=== PATIENT | male | born 1980 | race Two or more races ===

== ENCOUNTER 2017-02-16 12:37 | Inpatient (IN) | payer BC ==
[2017-02-16] MEDS ORDERED: Ondansetron 4 MG/2 ML SDV IVPUSH ONE (13:22)
[2017-02-16] MEDS ORDERED: Folic Acid 1 MG Tab PO ONE (13:24)
[2017-02-16] MEDS ORDERED: Sodium Chloride 0.9% 1,000 ML IV ONE (13:24)
[2017-02-16] MEDS ORDERED: Thiamine 100 MG Tab PO ONE (13:24)
--- NOTE | 2017-02-16 13:27 | EDM.PDOCBH ---
ED HPI GENERAL MEDICAL PROBLEM - General Chief Complaint: Drug or Alcohol Abuse Stated Complaint: ALCOHOL DETOX SENT FROM [facility] Time Seen by Provider: 02/16/17 13:09 Source of Information: Reports: Patient History Limitations: Reports: No Limitations - History of Present Illness INITIAL COMMENTS - FREE TEXT/NARRATIVE: Patient is a 36-year-old male with a long history of alcohol use presents to the ED wishing to go through detox. Patient went to [facility] today for detox and was sent here for evaluation and treatment for increased anxiety and generalized discomfort. Patient states he last drank approximately 45 minutes ago. This consisted of 2 shots of vodka and 24 oz bud light. Patient has been drinking 1 pint of vodka every day normally but states weekends he drinks approximately 2-3 liters of vodka a weekend. This has been going on for the past 2-3 months. Has been drinking alcohol every day since 2010 since his divorce. Has attempted to detox by himself one time last 3 days. He was unsuccessful. He's had no seizures. Denies any hallucinations, homicidal ideations, or suicidal thoughts. He does feel increased anxiety with mild nausea and has had episodes of palpitations. Denies any recreational drug use. Denies any prior inpatient treatment. Past medical history alcoholism, depression, anxiety, split personality disorder , and bipolar. Current medications none stated. Patient smokes approximately 2 packs per day. Alcohol use as discussed above. Denies recreational drugs. No primary care provider. Generalized Pain Score (Numeric/FACES): 7 - Related Data Allergies Allergy/AdvReac Type Severity Reaction Status Date / Time No Known Allergies Allergy Verified 02/16/17 12:54 Home Meds: Home Meds FLUoxetine [PROzac] 20 mg PO DAILY #30 cap 02/19/17 [Rx] Folic Acid 1 mg PO DAILY #30 tablet 02/19/17 [Rx] Nicotine [Habitrol] 21 mg TRDERM DAILY #30 patch 02/19/17 [Rx] QUEtiapine [SEROquel] 100 mg PO BEDTIME #30 tablet 02/19/17 [Rx] Thiamine [Vitamin B-1] 100 mg PO BEDTIME #30 tablet 02/19/17 [Rx] Topiramate [Topamax] 25 mg PO BID #60 tablet 02/19/17 [Rx] Past Medical History Psychiatric History: Reports: Anxiety, Depression Hematologic History: Reports: Anemia, Other (See Below) Other Hematologic History: protein deficiency in his blood? - Past Surgical History GI Surgical History: Reports: Other (See Below) Other GI Surgeries/Procedures: gastric sleeve surgery Social & Family History - Tobacco Use Smoking Status *Q: Current Every Day Smoker Years of Tobacco use: 24 Packs/Tins Daily: 2 - Recreational Drug Use Recreational Drug Use: No ED ROS GENERAL - Review of Systems Review Of Systems: See Below Constitutional: Reports: Malaise, Weakness, Fatigue, Decreased Appetite HEENT: Reports: No Symptoms Respiratory: Reports: No Symptoms Cardiovascular: Reports: No Symptoms GI/Abdominal: Reports: Nausea. Denies: Abdominal Pain, Black Stool, Bloody Stool, Hematemesis, Melena, Vomiting : Reports: No Symptoms Musculoskeletal: Reports: Muscle Pain (Generalized) Skin: Reports: No Symptoms Neurological: Denies: Confusion, Dizziness, Headache, Numbness, Seizure, Tingling Psychiatric: Reports: Anxiety, Cravings ED EXAM, BEHAVIORAL HEALTH - Physical Exam Exam: See Below Exam Limited By: No Limitations General Appearance: Alert, WD/WN, Anxious, Moderate Distress Eye Exam: Bilateral Eye: EOMI, Nystagmus (Horizontal present), PERRL Ears: Hearing Grossly Normal Nose: Normal Inspection Throat/Mouth: Normal Voice, No Airway Compromise, Other (Oral mucosa is mildly dry) Neck: Normal Inspection, Supple, Non-Tender, Full Range of Motion Respiratory/Chest: No Respiratory Distress, Lungs Clear, Normal Breath Sounds, No Accessory Muscle Use, Chest Non-Tender Cardiovascular: Normal Peripheral Pulses, No Murmur, Tachycardia GI/Abdominal: Normal Bowel Sounds, Soft, Non-Tender, No Organomegaly, No Distention Extremities: Normal Inspection, Non-Tender, No Pedal Edema, Normal Capillary Refill Neurological: Alert, CN II-XII Intact, Normal Cognition, No Motor/Sensory Deficits, Oriented x 3 Psychiatric: Alert, Normal Cognition, Oriented, Tearful, Other (Patient is very anxious). No: Flight of Ideas, Homicidal Thoughts, Suicidal Plan, Suicidal Thoughts, Auditory Hallucinations, Visual Hallucinations Skin Exam: Warm, Dry, Intact, Normal color COURSE, BEHAVIORAL HEALTH COMP - Course Vital Signs: Last Vital Signs Temp 97.6 F 02/19/17 12:00 Pulse 69 02/19/17 12:00 Resp 14 02/19/17 12:00 BP 97/69 02/19/17 12:00 Pulse Ox 98 02/19/17 12:00 Orders, Labs, Meds: Laboratory Tests 02/16/17 02/16/17 02/16/17 Range/Units 13:00 13:00 13:00 WBC 9.71 H (4.23-9.07) K/mm3 RBC 5.10 (4.63-6.08) M/mm3 Hgb 17.1 (13.7-17.5) gm/L Hct 48.4 (40.1-51.0) % MCV 94.9 H (79.0-92.2) fl MCH 33.5 H (25.7-32.2) pg MCHC 35.3 (32.2-35.5) g/dl RDW Std Deviation 46.4 H (35.1-43.9) fL Plt Count 191 (163-337) K/mm3 MPV 9.6 (9.4-12.3) fl Neut % (Auto) 71.6 H (34.0-67.9) % Lymph % (Auto) 18.1 L (21.8-53.1) % [place] % (Auto) 9.0 (5.3-12.2) % Eos % (Auto) 0.5 L (0.8-7.0) Baso % (Auto) 0.5 (0.1-1.2) % Neut # (Auto) 6.95 H (1.78-5.38) K/mm3 Lymph # (Auto) 1.76 (1.32-3.57) K/mm3 [place] # (Auto) 0.87 H (0.30-0.82) K/mm3 Eos # (Auto) 0.05 (0.04-0.54) K/mm3 Baso # (Auto) 0.05 (0.01-0.08) K/mm3 PT 9.9 (8.0-13.0) SECONDS INR 0.91 Sodium 139 (136-145) mEq/L Potassium 4.0 (3.5-5.1) mEq/L Chloride 100 (98-107) mEq/L Carbon Dioxide 28 (21-32) mEq/L Anion Gap 15.0 (5-15) BUN 8 (7-18) mg/dL Creatinine 0.8 (0.7-1.3) mg/dL Est Cr Clr Drug Dosing 141.49 mL/min Estimated GFR (MDRD) > 60 (>60) mL/min BUN/Creatinine Ratio 10.0 L (14-18) Glucose 114 H (74-106) mg/dL Calcium 9.1 (8.5-10.1) mg/dL Magnesium 1.7 L (1.8-2.4) mg/dl Total Bilirubin 0.5 (0.2-1.0) mg/dL AST 22 (15-37) U/L ALT 18 (16-63) U/L Alkaline Phosphatase 77 (46-116) U/L Total Protein 8.2 (6.4-8.2) g/dl Albumin 4.0 (3.4-5.0) g/dl Globulin 4.2 gm/dL Albumin/Globulin Ratio 1.0 (1-2) Lipase 478 H (73-393) U/L TSH 3rd Generation 1.126 (0.358-3.74) uIU/mL Urine Color (Yellow) Urine Appearance (Clear) Urine pH (5.0-8.0) Ur Specific [place] (1.005-1.030) Urine Protein (Negative) Urine Glucose (UA) (Negative) Urine Ketones (Negative) Urine Occult Blood (Negative) Urine Nitrite (Negative) Urine Bilirubin (Negative) Urine Urobilinogen (0.2-1.0) Ur Leukocyte Esterase (Negative) Urine RBC (0-5) /hpf Urine WBC (0-5) /hpf Ur Epithelial Cells (0-5) /hpf Urine Bacteria (FEW) /hpf Urine Mucus (FEW) /hpf Urine Opiates Screen (NEGATIVE) Ur Buprenorphine Scrn (NEGATIVE) Ur Oxycodone Screen (NEGATIVE) Urine Methadone Screen (NEGATIVE) Ur Propoxyphene Screen (NEGATIVE) Ur Barbiturates Screen (NEGATIVE) Ur Tricyclics Screen (NEGATIVE) Ur Phencyclidine Scrn (NEGATIVE) Ur Amphetamine Screen (NEGATIVE) U Methamphetamines Scrn (NEGATIVE) U Benzodiazepines Scrn (NEGATIVE) U Cocaine Metab Screen (NEGATIVE) U Marijuana (THC) Screen (NEGATIVE) Ethyl Alcohol 0.21 (0.00) gm% 02/16/17 02/16/17 Range/Units 13:40 13:40 WBC (4.23-9.07) K/mm3 RBC (4.63-6.08) M/mm3 Hgb (13.7-17.5) gm/L Hct (40.1-51.0) % MCV (79.0-92.2) fl MCH (25.7-32.2) pg MCHC (32.2-35.5) g/dl RDW Std Deviation (35.1-43.9) fL Plt Count (163-337) K/mm3 MPV (9.4-12.3) fl Neut % (Auto) (34.0-67.9) % Lymph % (Auto) (21.8-53.1) % Yancey % (Auto) (5.3-12.2) % Eos % (Auto) (0.8-7.0) Baso % (Auto) (0.1-1.2) % Neut # (Auto) (1.78-5.38) K/mm3 Lymph # (Auto) (1.32-3.57) K/mm3 [place] # (Auto) (0.30-0.82) K/mm3 Eos # (Auto) (0.04-0.54) K/mm3 Baso # (Auto) (0.01-0.08) K/mm3 PT (8.0-13.0) SECONDS INR Sodium (136-145) mEq/L Potassium (3.5-5.1) mEq/L Chloride (98-107) mEq/L Carbon Dioxide (21-32) mEq/L Anion Gap (5-15) BUN (7-18) mg/dL Creatinine (0.7-1.3) mg/dL Est Cr Clr Drug Dosing mL/min Estimated GFR (MDRD) (>60) mL/min BUN/Creatinine Ratio (14-18) Glucose (74-106) mg/dL Calcium (8.5-10.1) mg/dL Magnesium (1.8-2.4) mg/dl Total Bilirubin (0.2-1.0) mg/dL AST (15-37) U/L ALT (16-63) U/L Alkaline Phosphatase (46-116) U/L Total Protein (6.4-8.2) g/dl Albumin (3.4-5.0) g/dl Globulin gm/dL Albumin/Globulin Ratio (1-2) Lipase (73-393) U/L TSH 3rd Generation (0.358-3.74) uIU/mL Urine Color Yellow (Yellow) Urine Appearance Clear (Clear) Urine pH 6.5 (5.0-8.0) Ur Specific [place] 1.010 (1.005-1.030) Urine Protein Negative (Negative) Urine Glucose (UA) Negative (Negative) Urine Ketones Negative (Negative) Urine Occult Blood Negative (Negative) Urine Nitrite Negative (Negative) Urine Bilirubin Negative (Negative) Urine Urobilinogen 0.2 (0.2-1.0) Ur Leukocyte Esterase Negative (Negative) Urine RBC 0-5 (0-5) /hpf Urine WBC Not seen (0-5) /hpf Ur Epithelial Cells 0-5 (0-5) /hpf Urine Bacteria Rare (FEW) /hpf Urine Mucus Not seen (FEW) /hpf Urine Opiates Screen Negative (NEGATIVE) Ur Buprenorphine Scrn Negative (NEGATIVE) Ur Oxycodone Screen Negative (NEGATIVE) Urine Methadone Screen Negative (NEGATIVE) Ur Propoxyphene Screen Negative (NEGATIVE) Ur Barbiturates Screen Negative (NEGATIVE) Ur Tricyclics Screen Negative (NEGATIVE) Ur Phencyclidine Scrn Negative (NEGATIVE) Ur Amphetamine Screen Negative (NEGATIVE) U Methamphetamines Scrn Negative (NEGATIVE) U Benzodiazepines Scrn Negative (NEGATIVE) U Cocaine Metab Screen Negative (NEGATIVE) U Marijuana (THC) Screen Negative (NEGATIVE) Ethyl Alcohol (0.00) gm% Medications Discontinued Medications Generic Name Dose Route Start Last Admin Trade Name Freq PRN Reason Stop Dose Admin Al Hydroxide/Mg Hydroxide 30 ml 02/16/17 19:50 Mag-Al Plus PO Q4H PRN Heartburn Chlordiazepoxide HCl 25 mg 02/16/17 21:00 02/18/17 13:45 Librium PO Not Given QID SEAN Chlordiazepoxide HCl 50 mg 02/18/17 13:21 02/19/17 15:02 Librium PO 50 mg TID SEAN Administration Fluoxetine HCl 20 mg 02/17/17 09:00 02/19/17 08:32 Prozac PO 20 mg DAILY SEAN Administration Folic Acid 1 mg 02/16/17 13:24 02/16/17 15:01 Folic Acid PO 02/16/17 13:25 1 mg ONETIME ONE Administration Folic Acid 1 mg 02/17/17 09:00 02/19/17 08:31 Folic Acid PO 1 mg DAILY SEAN Administration Haloperidol Lactate 1 mg 02/16/17 20:04 02/17/17 03:13 Haldol IVPUSH 1 mg Q8H PRN Administration restlessness Haloperidol Lactate 1 mg 02/18/17 13:23 Haldol IVPUSH Q8H PRN Restlessness Sodium Chloride 1,000 mls @ 999 mls/hr 02/16/17 13:24 02/16/17 13:47 Normal Saline IV 02/16/17 14:24 999 mls/hr ONETIME ONE Administration Magnesium Sulfate 2 gm/ Premix 50 mls @ 25 mls/hr 02/16/17 14:34 02/16/17 14: 50 IV 02/16/17 16:33 25 mls/hr ONETIME ONE Administration Potassium Chloride/Sodium Chloride 1,000 mls @ 125 mls/hr 02/16/17 20:45 04:39 Normal Saline With 20 Meq Kcl IV 125 mls/hr ASDIRECTED SEAN Administration Magnesium Sulfate 2 gm/ Premix 50 mls @ 25 mls/hr 02/18/17 12:16 02/18/17 13: 43 IV 02/18/17 14:15 25 mls/hr ONETIME ONE Administration Lorazepam 3 mg 02/16/17 16:19 02/16/17 16:24 Ativan IVPUSH 02/16/17 16:20 3 mg ONETIME ONE Administration Lorazepam 0 mg 02/16/17 21:28 02/18/17 09:55 Ativan IVPUSH 1 mg ASDIRECTED PRN Administration Withdrawal Symptoms Protocol Lorazepam 3 mg 02/17/17 15:33 02/17/17 16:47 Ativan IVPUSH 02/17/17 15:34 3 mg ONETIME ONE Administration Lorazepam 3 mg 02/18/17 13:22 02/19/17 13:22 Ativan IVPUSH 3 mg Q6H PRN Administration Anxiety Metoprolol Tartrate 25 mg 02/16/17 21:00 02/19/17 09:24 Lopressor PO Not Given Q12HR SEAN Metoprolol Tartrate 5 mg 02/16/17 20:32 Lopressor IVPUSH Q6H PRN heart rate Miscellaneous Information 0 ea 02/18/17 09:00 02/19/17 09:00 Remove Patch TRDERM 1 ea DAILY SEAN Administration Nicotine 21 mg 02/17/17 13:00 02/19/17 08:33 Habitrol TRDERM 21 mg DAILY SEAN Administration Nicotine 14 mg 02/17/17 13:00 02/17/17 13:42 Habitrol TRDERM Not Given DAILY SEAN Ondansetron HCl 4 mg 02/16/17 13:22 02/16/17 13:48 Zofran IVPUSH 02/16/17 13:23 4 mg ONETIME ONE Administration Pantoprazole Sodium 40 mg 02/16/17 20:30 02/18/17 09:38 Protonix Iv IVPUSH 40 mg Q12H SEAN Administration Pantoprazole Sodium 40 mg 02/19/17 07:00 02/19/17 06:50 Protonix PO 40 mg DAILY@0700 SEAN Administration Quetiapine Fumarate 25 mg 02/16/17 21:00 02/16/17 20:37 Seroquel PO 25 mg BEDTIME SEAN Administration Quetiapine Fumarate 100 mg 02/17/17 21:00 02/18/17 20:23 Seroquel PO 100 mg BEDTIME SEAN Administration Sodium Chloride 10 ml 02/16/17 13:22 02/18/17 20:26 Saline Flush FLUSH 10 ml ASDIRECTED PRN Administration Keep Vein Open Thiamine HCl 100 mg 02/16/17 13:24 02/16/17 15:01 Vitamin B-1 PO 02/16/17 13:25 100 mg ONETIME ONE Administration Thiamine HCl 100 mg 02/17/17 21:00 02/18/17 20:22 Vitamin B-1 PO 100 mg BEDTIME SEAN Administration Topiramate 25 mg 02/17/17 09:00 02/19/17 08:32 Topamax PO 25 mg BID SEAN Administration Re-Assessment/Re-Exam: IV started with normal saline 999 mL per hour, Zofran 4 mg IVP, folic acid 1 mg by mouth, thiamine 100mgs by mouth. Initial labs and studies include CBC, chem 14, urine drug tox, serum EtOH, INR, lipase, magnesium, TSH, UA, and EKG. CIWAA assessment ordered, protocol will be initiated. Labs reviewed: White blood cell count 9.71, hemoglobin 17.1, MCV 94.9, neutrophil percent is 71.6, neutrophil #[id number], INR 0.91, sodium 139, potassium 4.0, AG 15.0, creatinine 0.8, glucose 114, magnesium mildly low at 1.7, lipase 478, TSH is 1.126, serum EtOH 0.21. Initial CIWAA 7 Ordered magnesium 2 g IVP. EKG sinus tachycardia at a rate of [address] changes noted. 1435 Blood pressure 124/78 heart rate 96. Patient states he is feeling much better with the above therapies. [address] Stovall [facility]. Will have Marion with [facility] speak with the patient to determine admission to the hospital or [facility] Crisis bed. 1524 Spoke with Marion with [facility]. She will see the patient and discuss options. 1538 Per Marion patient will be admitted to ICU for detox. [address] Stovall, Admit to ICU. Requested ativan 3mg IVP for increased anxiety. Departure - Departure Time of Disposition: 15:38 Disposition: Admitted As Inpatient 64 Condition: Fair Clinical Impression: Alcohol abuse Alcohol withdrawal syndrome Qualifiers: Complication of substance-induced condition: with unspecified complication Qualified Code(s): F10.239 - Alcohol dependence with withdrawal, unspecified - Discharge Information
[2017-02-16] MEDS ORDERED: Magnesium Sulfate/Water 2 GM in Premix Bag 1 BAG IV ONE (14:34)
[2017-02-16] MEDS: Sodium Chloride 0.9% 10 ML Syringe FLUSH PRN ×2 (14:53→20:38)
[2017-02-16] MEDS ORDERED: LORazepam 2 MG/ML MDV IVPUSH ONE (16:19)
--- NOTE | 2017-02-16 19:37 | PCM.HP ---
H&P History of Present Illness - General Date of Service: 02/16/17 Admit Problem/Dx: Admission Diagnosis/Problem Admission Diagnosis/Problem Alcohol abuse Source of Information: Patient, Provider History Limitations: Reports: No Limitations - History of Present Illness Initial Comments - Free Text/Narative: 36 year old male without prior hostory of alcohol treatment was sent to the ED from [facility] for detox treatment for alcohol. He drinks 1-3 liters daily, and has consistently drank since relocating to the [facility]. he has a history of mental health, diagnosis is Bipolar Affective Disorder. There does not appear to be a family history of substance abuse, however there is family history of Schizophrenia and Bipolar Disorder. The patient attempted to stop drinking on his own, however he was unsuccessful after 3 days, and had a drink. He drank before seeking help at [facility] for alcoholism. BETSY is currently 0.21 on the day of admission to the ICU. He also is addicted to tobacco, and has a 48 pack year history. UDS is unremarkable. Onset of Symptoms: Reports: Unknown/Unsure Symptom Onset Date: 02/16/17 Duration of Symptoms: Reports: Week(s):, Getting Worse Location: Reports: Generalized Quality: Reports: Same as Previous Episode Severity: Moderate Improves with: Reports: Medication Worsens with: Reports: Other (drinking) Associated Symptoms: Reports: Other (depression) Generalized Pain Score (Numeric/FACES): 7 - Related Data Allergies/Adverse Reactions: Allergies Allergy/AdvReac Type Severity Reaction Status Date / Time No Known Allergies Allergy Verified 02/16/17 12:54 Home Medications: Home Meds . [No Known Home Meds] 02/16/17 [History] Past Medical History - Past Health History Medical/Surgical History: Denies Medical/Surgical History Psychiatric History: Reports: Anxiety, Depression Hematologic History: Reports: Anemia, Other (See Below) Other Hematologic History: protein deficiency in his blood? - Past Surgical History GI Surgical History: Reports: Other (See Below) Other GI Surgeries/Procedures: gastric sleeve surgery Other Endocrine Surgeries/Procedures: enlarged liver Other Musculoskeletal Surgeries/Procedures:: left calf surgury Social & Family History - Family History HEENT: Reports: None Cardiac: Reports: Heart Failure Respiratory: Reports: Asthma GI: Reports: Other (See Below) Other GI Family History: ulcers : Reports: None Psychiatric: Reports: Bipolar - Tobacco Use Smoking Status *Q: Current Every Day Smoker Years of Tobacco use: 24 Packs/Tins Daily: 2 - Caffeine Use Caffeine Use: Reports: Coffee - Alcohol Use Days Per Week of Alcohol Use: 7 Number of Drinks Per Day: 20 Total Drinks Per Week: 140 Date of Last Drink: 02/16/17 Time of Last Drink: 13:00 - Recreational Drug Use Recreational Drug Use: No H&P Review of Systems - Review of Systems: Review Of Systems: See Below General: Reports: No Symptoms HEENT: Reports: No Symptoms Pulmonary: Reports: No Symptoms Cardiovascular: Reports: No Symptoms Gastrointestinal: Reports: No Symptoms Genitourinary: Reports: No Symptoms Musculoskeletal: Reports: No Symptoms Skin: Reports: No Symptoms Psychiatric: Reports: Depression, Anxiety, Agitation Neurological: Reports: No Symptoms Hematologic/Lymphatic: Reports: No Symptoms Immunologic: Reports: No Symptoms Exam - Exam Exam: See Below - Vital Signs Vital Signs: Last Vital Signs Temp 37.1 C 02/16/17 19:29 Pulse 105 H 02/16/17 19:29 Resp 20 02/16/17 19:29 BP 130/87 02/16/17 19:29 Pulse Ox 100 02/16/17 19:29 Weight: 117.934 kg - Exam General: Alert, Oriented, Cooperative HEENT: Conjunctiva Clear, EOMI, Pupils Equal, Pupils Reactive, PERRLA Neck: Supple, Trachea Midline Lungs: Normal Respiratory Effort Cardiovascular: Regular Rate, Regular Rhythm GI/Abdominal Exam: Normal Bowel Sounds, Soft, Non-Tender, No Organomegaly, No Distention (Male) Exam: Deferred Rectal (Males) Exam: Deferred Back Exam: Normal Inspection Extremities: Normal Inspection Skin: Warm Neurological: Cranial Nerves Intact, Normal Speech Neuro Extensive - Mental Status: Alert, Oriented x3 Neuro Extensive - Motor, Sensory, Reflexes: CN II-XII Intact Psychiatric: Alert, Anxious, Depressed, Agitated - Patient Data Result Diagrams: 02/18/17 05:04 02/18/17 05:04 *Q Meaningful Use (ADM) - VTE *Q VTE Criteria *Q: - Stroke *Q Stroke Criteria *Q: - AMI *Q AMI Criteria *Q: - Problem List (1) Bipolar affective disorder SNOMED Code(s): 61427121 ICD Code: F31.9 - BIPOLAR DISORDER, UNSPECIFIED Status: Acute Current Visit: Yes (2) H/O gastric bypass SNOMED Code(s): 126759782 ICD Code: Z98.890 - OTHER SPECIFIED POSTPROCEDURAL STATES Status: Acute Current Visit: Yes (3) Anxiety and depression SNOMED Code(s): 806254390 ICD Code: F41.8 - OTHER SPECIFIED ANXIETY DISORDERS Status: Acute Current Visit: Yes (4) Tobacco dependence due to cigarettes SNOMED Code(s): 11796084753299566 ICD Code: F17.210 - NICOTINE DEPENDENCE, CIGARETTES, UNCOMPLICATED Status: Acute Current Visit: Yes (5) Alcohol abuse SNOMED Code(s): 84924711 ICD Code: F10.10 - ALCOHOL ABUSE, UNCOMPLICATED Status: Acute Current Visit: Yes (6) Alcohol withdrawal syndrome SNOMED Code(s): 456916788 ICD Code: F10.239 - ALCOHOL DEPENDENCE WITH WITHDRAWAL, UNSPECIFIED Status : Acute Current Visit: Yes Qualifiers: Complication of substance-induced condition: with unspecified complication Qualified Code(s): F10.239 - Alcohol dependence with withdrawal, unspecified Problem List Initiated/Reviewed/Updated: Yes Orders Last 24hrs: Active Orders 24 hr Category Date Time Status Patient Status [ADT] Routine ADT 02/16/17 18:25 Active Medication Orders Sodium Chloride (Saline Flush) 10 ml FLUSH ASDIRECTED PRN PRN Reason: Keep Vein Open Last Admin: 02/16/17 14:53 Dose: 10 ml Assessment/Plan Comment:: Impression: ETOH dependence; requesting treatment ETOH level 0.21 History of Bipolar Affective Disorder Tobacco dependence Hypomagnesemia Plan: [facility] Protocol Substance abuse consult Psych consult IVF Clear liquids advance as tolerated SW/PT/OT DVT/GI prophylaxis
[2017-02-16] MEDS ORDERED: Aluminum Hydroxide/Magnesium Hydroxide/Simethicone Susp 30 ML Cup PO PRN (19:50)
[2017-02-16] MEDS ORDERED: Haloperidol Lactate 5 MG/ML SDV IVPUSH PRN (20:04)
[2017-02-16] MEDS ORDERED: Metoprolol Tartrate 5 MG/5 ML SDV IVPUSH PRN (20:32)
[2017-02-16] MEDS: chlordiazePOXIDE 25 MG Cap PO SCH (20:36)
[2017-02-16] MEDS: Pantoprazole 40 MG Vial IVPUSH SCH (20:36)
[2017-02-16] MEDS: Metoprolol Tartrate 25 MG Tab PO SCH (20:37)
[2017-02-16] MEDS: NS + KCl 20mEq/L 1,000 ML IV SCH (20:53)
[2017-02-16] MEDS ORDERED: QUEtiapine 25 MG Tab PO SCH (21:00)
[2017-02-17] MEDS: LORazepam 2 MG/ML MDV IVPUSH PRN (03:14)
[2017-02-17] MEDS: NS + KCl 20mEq/L 1,000 ML IV SCH (04:39)
[2017-02-17] MEDS: Pantoprazole 40 MG Vial IVPUSH SCH ×2 (09:03→20:05)
[2017-02-17] MEDS: Folic Acid 1 MG Tab PO SCH (09:04)
[2017-02-17] MEDS: FLUoxetine 20 MG Cap PO SCH (09:04)
[2017-02-17] MEDS: Topiramate 25 MG Tab PO SCH ×2 (09:04→20:05)
[2017-02-17] MEDS: chlordiazePOXIDE 25 MG Cap PO SCH ×4 (09:04→20:06)
[2017-02-17] MEDS: Metoprolol Tartrate 25 MG Tab PO SCH ×2 (09:05→20:06)
--- NOTE | 2017-02-17 12:15 | CONS ---
CONSULTING PHYSICIAN: Jonathon Paredes MD DATE OF CONSULTATION: 02/17/2017 IDENTIFICATION: The patient is a 36-year-old male who is admitted to the [facility] inpatient MICU in [place], [place] on 02/16/2017. He is seen for psychiatric evaluation. CHIEF COMPLAINT: "I just got drunk, I am tired of being an alcoholic." HISTORY OF PRESENT ILLNESS: The patient is a 36-year-old male who states he has been drinking "2/5th a day of vodka." He states that he is looking to get help and he wants to get sober, and he wants to go to [facility] in [place], [place] to get help and they "sent me to the hospital because they thought it was the severe case." On admission, the patient's BAL was 0.21. The patient states that his alcohol use is complicated by mood swings, depression, and anxiety. He also states "I do not get much sleep. I only sleep in 30-minute increments." He also reports racing thoughts, ruminations, and a lot of paranoia. He states he was on Paxil in the past and he thinks his medication helped, but then "it stopped working." He states that he would like to get sober and also get some help for his mood. MEDICATIONS: At the time of presentation, none. ALLERGIES: No known drug allergies. PAST MEDICAL HISTORY: 1. Enlarged liver with scar tissue. 2. Status post weight loss surgery in 2011 with over a 220-pound weight loss. FAMILY, PSYCHIATRY, AND CD HISTORY: The patient reports that his maternal uncle has a history of schizophrenia and his paternal uncle and paternal aunt have a history of bipolar affective disease. SOCIAL HISTORY: The patient is denying any previous psychiatric hospitalizations or chemical dependency treatments. Denies any previous suicide attempts, self-injurious behaviors, or eating disorder history. He began drinking at 11 years of age. Longest sobriety was for 2 months in 2016. He has never been to AA. PAST PSYCHIATRIC DIAGNOSIS: Bipolar affective disease. PAST PSYCHIATRIC MEDICATION HISTORY: Includes Paxil which worked, but then stopped working, even though it was raised to its maximum dose. SOCIAL HISTORY: The patient was born and raised in [place], [place]. He is the youngest of 2 siblings and 1 older sister. The patient's parents were throughout his childhood and adolescence. Father is an air compressor engineer. Mother is a homemaker. The patient's highest level of education is 1 year of college. The patient works in the oil field. He has been in [place] for the past 7 months. He is x1, has 3 children from that union, has been , has another child from a previous relationship. He has been in current relationship for 2 years and has a 5th child on the way. His girlfriend is a gaming cashier and she lives on in [place]. The patient lives in [place] with a friend while he is working in the [employer]. Denies any prior service or any current legal difficulties. He was raised Buddhism. He enjoys playing his PlayStation [employer] in his spare time. MENTAL STATUS EXAM: The patient is a 36-year-old male in no apparent distress. Speech is of regular rate and rhythm. The patient is cognitively oriented. Psychomotor activity is within normal limits. There is no abnormal motor movements or tics observed. Gait and station are not observed. This patient is lying in bed during the consult. Mood is depressed. Affect is consistent with stated mood, restrictive but cooperative overall for the purposes of the inpatient consult. There is no behavioral or stated evidence of acute suicidal or homicidal ideation or acute psychotic or delusional symptoms. Thought content is significant for paranoid thinking. Thought processes are significant for racing thoughts or ruminations. There are no acute manic symptoms or loose associations evident. Judgment and insight appear unimpaired at this point in time. Motivation for help is good. VITALS: 6 feet 1 inch tall, 250 pounds, 120/83, 70, 16, 98.6 degrees. IMPRESSION: [place] I: 1. Alcohol dependence, F10.20. 2. Bipolar affective disease, mixed type, F31.60. 3. Anxiety disorder, not otherwise specified, F41.9. Massena II: None. Massena III: 1. Enlarged liver with scar tissue. 2. Status post weight loss surgery in 2011 with 220-pound weight loss. Massena IV: Severe. Massena V: 55. PLAN: 1. Sobriety. 2. AA rep. 3. Pastoral guidance. 4. Folic acid supplementation. 5. Thiamine supplementation. 6. Begin Seroquel 100 mg at bedtime for clarity of thought, mood stability, sleep initiation and maintenance, and anxiety reduction. 7. Begin Prozac 20 mg q.a.m. for mood. 8. Begin Topamax 25 mg b.i.d. for seizure prophylaxis and mood stability as well as anxiety reduction. 9. Ativan per [facility] protocol. 10.Recommend the patient proceed to chemical dependency treatment as he currently has in place when he is medically stabilized and ready to be discharged back to the community. 11.Recommend the patient follow up with Outpatient Psychiatry when he is medically stabilized and discharged back to community to assess his overall function with efficacy of his newly initiated psychiatric medication regimen. 12.The patient is apprised of benefits and side effects of his newly initiated psychiatric medication regimen. He acknowledged his understanding of his questions by the end of the interview session. 13.We will continue follow up with the patient on as needed basis while he remains on the inpatient MICU at [facility]. 14.We will follow up with the patient or sooner if any complications in the interim. 15.Crisis plan is in place. HUSSEIN /[id number]
[2017-02-17] MEDS ORDERED: Nicotine 14 MG/24 Hr Patch TRDERM SCH (13:00)
[2017-02-17] MEDS: Nicotine 21 MG/24 Hr Patch TRDERM SCH (13:42)
[2017-02-17] MEDS ORDERED: LORazepam 2 MG/ML MDV IVPUSH ONE (15:33)
--- NOTE | 2017-02-17 17:03 | PCM.PN ---
- General Info Date of Service: 02/17/17 Functional Status: Reports: Tolerating Diet, Ambulating, Urinating - Review of Systems General: Reports: Weakness HEENT: Reports: No Symptoms Pulmonary: Reports: No Symptoms Cardiovascular: Reports: No Symptoms Gastrointestinal: Reports: No Symptoms Genitourinary: Reports: No Symptoms Musculoskeletal: Reports: No Symptoms Skin: Reports: No Symptoms Neurological: Reports: No Symptoms Psychiatric: Reports: Mood Lability, Anxiety, Agitation - Patient Data Vitals - Most Recent: Last Vital Signs Temp 36.4 C 02/17/17 12:00 Pulse 72 02/17/17 12:00 Resp 18 02/17/17 12:00 BP 138/72 02/17/17 12:00 Pulse Ox 100 02/17/17 12:00 Weight - Most Recent: 117.934 kg I&O - Last 24 Hours: Intake & Output 02/17/17 02/17/17 02/17/17 06:59 14:59 22:59 Intake Total 301 936 7445 Output Total 1580 420 Balance 970 -900 845 Lab Results Last 24 Hours: Laboratory Results - last 24 hr 02/17/17 02/17/17 Range/Units 04:50 04:50 WBC 7.83 (4.23-9.07) K/mm3 RBC 4.76 (4.63-6.08) M/mm3 Hgb 15.6 (13.7-17.5) gm/L Hct 46.6 (40.1-51.0) % MCV 97.9 H (79.0-92.2) fl MCH 32.8 H (25.7-32.2) pg MCHC 33.5 (32.2-35.5) g/dl RDW Std Deviation 48.8 H (35.1-43.9) fL Plt Count 166 (163-337) K/mm3 MPV 9.6 (9.4-12.3) fl Neut % (Auto) 61.5 (34.0-67.9) % Lymph % (Auto) 26.6 (21.8-53.1) % [place] % (Auto) 8.9 (5.3-12.2) % Eos % (Auto) 2.2 (0.8-7.0) Baso % (Auto) 0.5 (0.1-1.2) % Neut # (Auto) 4.82 (1.78-5.38) K/mm3 Lymph # (Auto) 2.08 (1.32-3.57) K/mm3 [place] # (Auto) 0.70 (0.30-0.82) K/mm3 Eos # (Auto) 0.17 (0.04-0.54) K/mm3 Baso # (Auto) 0.04 (0.01-0.08) K/mm3 Sodium 140 (136-145) mEq/L Potassium 4.0 (3.5-5.1) mEq/L Chloride 104 (98-107) mEq/L Carbon Dioxide 29 (21-32) mEq/L Anion Gap 11.0 (5-15) BUN 10 (7-18) mg/dL Creatinine 0.8 (0.7-1.3) mg/dL Est Cr Clr Drug Dosing 141.49 mL/min Estimated GFR (MDRD) > 60 (>60) mL/min BUN/Creatinine Ratio 12.5 L (14-18) Glucose 94 (74-106) mg/dL Calcium 8.7 (8.5-10.1) mg/dL Magnesium 2.0 (1.8-2.4) mg/dl C-Reactive Protein < 0.2 (<1.0) mg/dL Ethyl Alcohol 0.00 (0.00) gm% Med Orders - Current: Current Medications Al Hydroxide/Mg Hydroxide (Mag-Al Plus) 30 ml PO Q4H PRN PRN Reason: Heartburn Chlordiazepoxide HCl (Librium) 25 mg PO QID [facility] Last Admin: 02/17/17 16:48 Dose: 25 mg Fluoxetine HCl (Prozac) 20 mg PO DAILY [facility] Last Admin: 02/17/17 09:04 Dose: 20 mg Folic Acid (Folic Acid) 1 mg PO DAILY [facility] Last Admin: 02/17/17 09:04 Dose: 1 mg Haloperidol Lactate (Haldol) 1 mg IVPUSH Q8H PRN PRN Reason: restlessness Last Admin: 02/17/17 03:13 Dose: 1 mg Lorazepam (Ativan) 0 mg IVPUSH ASDIRECTED PRN; Protocol PRN Reason: Withdrawal Symptoms Last Admin: 02/17/17 03:14 Dose: 1 mg Metoprolol Tartrate (Lopressor) 25 mg PO Q12HR [facility] Last Admin: 02/17/17 09:05 Dose: 25 mg Metoprolol Tartrate (Lopressor) 5 mg IVPUSH Q6H PRN PRN Reason: heart rate Miscellaneous Information (Remove Patch) 0 ea TRDERM DAILY [facility] Nicotine (Habitrol) 21 mg TRDERM DAILY [facility] Last Admin: 02/17/17 13:42 Dose: 21 mg Pantoprazole Sodium (Protonix Iv) 40 mg IVPUSH Q12H [facility] Last Admin: 02/17/17 09:03 Dose: 40 mg Quetiapine Fumarate (Seroquel) 100 mg PO BEDTIME [facility] Sodium Chloride (Saline Flush) 10 ml FLUSH ASDIRECTED PRN PRN Reason: Keep Vein Open Last Admin: 02/16/17 20:38 Dose: 10 ml Thiamine HCl (Vitamin B-1) 100 mg PO BEDTIME [facility] Topiramate (Topamax) 25 mg PO BID [facility] Last Admin: 02/17/17 09:04 Dose: 25 mg Discontinued Medications Folic Acid (Folic Acid) 1 mg PO ONETIME ONE Stop: 02/16/17 13:25 Last Admin: 02/16/17 15:01 Dose: 1 mg Sodium Chloride (Normal Saline) 1,000 mls @ 999 mls/hr IV ONETIME ONE Stop: 02/16/17 14:24 Last Admin: 02/16/17 13:47 Dose: 999 mls/hr Magnesium Sulfate 2 gm/ Premix 50 mls @ 25 mls/hr IV ONETIME ONE Stop: 02/16/17 16:33 Last Admin: 02/16/17 14:50 Dose: 25 mls/hr Potassium Chloride/Sodium Chloride (Normal Saline With 20 Meq Kcl) 1,000 mls @ 125 mls/hr IV ASDIRECTED [facility] Last Admin: 02/17/17 04:39 Dose: 125 mls/hr Lorazepam (Ativan) 3 mg IVPUSH ONETIME ONE Stop: 02/16/17 16:20 Last Admin: 02/16/17 16:24 Dose: 3 mg Lorazepam (Ativan) 3 mg IVPUSH ONETIME ONE Stop: 02/17/17 15:34 Last Admin: 02/17/17 16:47 Dose: 3 mg Nicotine (Habitrol) 14 mg TRDERM DAILY [facility] Last Admin: 02/17/17 13:42 Dose: Not Given Ondansetron HCl (Zofran) 4 mg IVPUSH ONETIME ONE Stop: 02/16/17 13:23 Last Admin: 02/16/17 13:48 Dose: 4 mg Quetiapine Fumarate (Seroquel) 25 mg PO BEDTIME SEAN Last Admin: 02/16/17 20:37 Dose: 25 mg Thiamine HCl (Vitamin B-1) 100 mg PO ONETIME ONE Stop: 02/16/17 13:25 Last Admin: 02/16/17 15:01 Dose: 100 mg - Exam Quality Assessment: DVT Prophylaxis General: Alert, Oriented, No Acute Distress HEENT: Pupils Equal, Pupils Reactive, EOMI Neck: Supple, Trachea Midline Lungs: Normal Respiratory Effort Cardiovascular: Regular Rate, Regular Rhythm GI/Abdominal Exam: Normal Bowel Sounds, Soft, Non-Tender, No Organomegaly, No Distention (Male) Exam: Deferred Back Exam: Normal Inspection Extremities: Normal Inspection Skin: Warm Neurological: No New Focal Deficit Psy/Mental Status: Alert, Anxious, Agitated - Problem List & Annotations (1) Bipolar affective disorder SNOMED Code(s): 07743334 Code(s): F31.9 - BIPOLAR DISORDER, UNSPECIFIED Status: Acute Current Visit: Yes (2) H/O gastric bypass SNOMED Code(s): 608859516 Code(s): Z98.890 - OTHER SPECIFIED POSTPROCEDURAL STATES Status: Acute Current Visit: Yes (3) Anxiety and depression SNOMED Code(s): 071968521 Code(s): F41.8 - OTHER SPECIFIED ANXIETY DISORDERS Status: Acute Current Visit: Yes (4) Tobacco dependence due to cigarettes SNOMED Code(s): 07568739731690737 Code(s): F17.210 - NICOTINE DEPENDENCE, CIGARETTES, UNCOMPLICATED Status: Acute Current Visit: Yes (5) Alcohol abuse SNOMED Code(s): 28414081 Code(s): F10.10 - ALCOHOL ABUSE, UNCOMPLICATED Status: Acute Current Visit: Yes (6) Alcohol withdrawal syndrome SNOMED Code(s): 515901867 Code(s): F10.239 - ALCOHOL DEPENDENCE WITH WITHDRAWAL, UNSPECIFIED Status: Acute Current Visit: Yes Qualifiers: Complication of substance-induced condition: with unspecified complication Qualified Code(s): F10.239 - Alcohol dependence with withdrawal, unspecified - Problem List Review Problem List Initiated/Reviewed/Updated: Yes - My Orders Last 24 Hours: My Active Orders 02/16/17 18:25 Patient Status [ADT] Routine 02/16/17 19:50 Alum Hydrox/Mag Hydrox/Simeth [Mag-Al Plus] 30 ml PO Q4H PRN 02/16/17 20:04 Haloperidol Lactate [Haldol] 1 mg IVPUSH Q8H PRN 02/16/17 20:09 Consult to Career Technology Teacher [CONS] Routine 02/16/17 20:12 Consult to Physician [CONS] Routine 02/16/17 20:13 Notify Provider Consults [RC] ASDIRECTED Consult for Substance Abuse [CONS] Routine 02/16/17 20:30 Pantoprazole [ProTONIX IV] 40 mg IVPUSH Q12H 02/16/17 20:32 Metoprolol Tartrate [Lopressor] 5 mg IVPUSH Q6H PRN 02/16/17 20:35 Code Status [Resuscitation Status] Routine 02/16/17 20:37 Antiembolic Devices [RC] BID 02/16/17 21:00 Metoprolol Tartrate [Lopressor] 25 mg PO Q12HR chlordiazePOXIDE [Librium] 25 mg PO QID 02/16/17 21:28 LORazepam [Ativan] See Protocol IVPUSH ASDIRECTED PRN 02/17/17 09:00 Folic Acid 1 mg PO DAILY LIGIA Hose [Antiembolic Hose] [OM.PC] Routine 02/17/17 13:00 Nicotine [Habitrol] 21 mg TRDERM DAILY 02/17/17 21:00 Thiamine [Vitamin B-1] 100 mg PO BEDTIME 02/17/17 Dinner Regular Diet [DIET] 02/18/17 05:00 BASIC METABOLIC PANEL,BMP [CHEM] DAILY CBC WITH AUTO DIFF [HEME] DAILY CRP [C-REACTIVE PROTEIN] [CHEM] DAILY MAGNESIUM [CHEM] DAILY 02/18/17 09:00 Remove Patch 0 ea TRDERM DAILY 02/19/17 05:00 BASIC METABOLIC PANEL,BMP [CHEM] DAILY CBC WITH AUTO DIFF [HEME] DAILY CRP [C-REACTIVE PROTEIN] [CHEM] DAILY MAGNESIUM [CHEM] DAILY 02/20/17 05:00 BASIC METABOLIC PANEL,BMP [CHEM] DAILY CBC WITH AUTO DIFF [HEME] DAILY CRP [C-REACTIVE PROTEIN] [CHEM] DAILY MAGNESIUM [CHEM] DAILY - Assessment Assessment:: Impression: ETOH dependence; requesting treatment ETOH level 0.21 History of Bipolar Affective Disorder Tobacco dependence Hypomagnesemia--->replace as needed. Plan: Meds are ordered per Dr Paredes, seroquel has been increased to 100 mg daily. [facility] Protocol Substance abuse consult-->see recommendations, is expected to follow outpatient treatment Psych consult--->reviewed. IVF Clear liquids advance as tolerated SW/PT/OT DVT/GI prophylaxis - Plan Plan:: Impression: ETOH dependence; requesting treatment ETOH level 0.21 History of Bipolar Affective Disorder Tobacco dependence Hypomagnesemia Plan: [facility] Protocol Substance abuse consult Psych consult IVF Clear liquids advance as tolerated SW/PT/OT DVT/GI prophylaxis
[2017-02-17] MEDS: Thiamine 100 MG Tab PO SCH (20:05)
[2017-02-17] MEDS: QUEtiapine 100 MG Tab PO SCH (20:05)
--- NOTE | 2017-02-17 23:48 | CONS ---
CONSULTING PHYSICIAN: Maurilio Solares LAC DATE OF CONSULTATION: 02/17/2017 TIME: 9:29 p.m. The patient is a 36-year-old male who was admitted to [facility] ICU on 02/16/2017 with pancreatitis. An alcohol and drug consultation was requested by his medical treatment team. SOURCE OF INFORMATION: Hospital records, patient's self report, background research, and prescription drug monitoring report. HISTORY OF PRESENT ILLNESS: The patient is a 36-year-old male who voluntarily pursued substance abuse treatment at [facility] on 02/16/2017. However, during his evaluation at that facility, the patient experienced withdrawals and was referred to [facility] Emergency room for detox. His admitting BETSY was 0.21 as he states he drank a beer and a shot on his way between [facility] and the emergency room to subdue his withdrawal symptoms. PSYCHOSOCIAL HISTORY: The patient was born and raised in [place], [place] by his biological parents. He is the youngest of 2 children and has 1 older sister. The patient graduated from high school in 1996 where he maintained average grades and was involved in football and played the [employer] in the [employer]. He went on and completed a year of college at the [employer] in [place]. However, he was in 1997 and quit college. The marriage lasted until 2009 and he has 3 children from that marriage who live in [place] with their mother. He has had no contact with them. He reports having another child who is 2 years old. Again, he has no contact with that child and his current significant other is 6 months . 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 He lost the company to his divorce. He moved to [place] in 2013 and has been working for [employer] ramses in [place]. He currently lives in [place] with a roommate. He states he was raised Buddhism and enjoys playing video games in his spare time. MENTAL HEALTH HISTORY: According to Dr. Reggie HANKS's report dated 02/17/2017, the patient is diagnosed with bipolar affective disease, mixed type, and anxiety disorder, NOS. His maternal uncle has a history of schizophrenia and his paternal grandfather and aunt have a history of bipolar affective disorder. SUBSTANCE ABUSE HISTORY: Alcohol: The patient reports he started drinking at approximately age 13 and drank every other day a 40 ounce malt liquor. He did not drink in college. From 1998 to 2003, he drank once a month to "really drunk" at [employer] with a brandee. He would typically drink 4 Brudis beers in upwards of 4 shots. From 2003 to 2007, he drank every weekend about 22 to 24 beers per occasion every day of the weekend, Thursday, Thursday, Thursday. From 2007 to 2013, he drank every day a 6-pack, and on the weekend, a pint of [place] vodka and/or a case of beer. From 2013 to about 6 months ago, he has been increasing his drinking, going to the liquor store after work and drinking a 24-ounce beer and a pint of Absolut vodka at night and on the weekends a fifth of [place] vodka daily. In the past 6 months, he has been drinking 1 pint of vodka every day after work and up to two-fifth of vodka over a weekend. He has never been to substance abuse treatment, but states his medical condition is now deterring him from continued drinking. He voluntarily admitted himself to [facility] on 02/16/2017. However, he had to detox first and was sent to [facility] ER. He states he had a beer and a shot before going into the emergency room to subdue his withdrawals. His admitting BETSY was 0.20. He has experienced pass outs and withdrawals and reports blacking out about twice a year. He states that most night he passes out. He is able to stay sober 1 to 2 days before experiencing withdrawals. The patient reports his maternal grandfather and uncle were alcoholics. Cannabis: The patient reports he started to smoke weed at about age 13 with his cousin who was selling. The patient reports he sold weed right away to afford his own supply. However, at that time, he was smoking a joint a week. He did not smoke while in college, but went back to smoking around 2009, typically a gram a day. He quit smoking cannabis in 2013 to work in the [employer]. Tobacco: The patient reports he smokes 2 packs of cigarettes daily and has since his teens. The patient denies use of any other illicit drug. DIAGNOSES: The patient meets DSM 5 criteria for the following diagnoses: 1. F10.20, alcohol use disorder, severe. 2. F10.229, alcohol intoxication. 3. F10.232, alcohol withdrawal with perceptual disturbance. 4. F17.200, tobacco use disorder, severe. 5. F12.20, cannabis use disorder, severe in sustained full remission. ASAM DIMENSIONS: 1. Dimension 1: Score 2. The patient had some difficulty tolerating and coping with withdrawal discomfort. Intoxication may be severe, but responds to support and treatment such that the patient does not immediately endanger self or others. Displays moderate signs and symptoms with moderate risk of severe withdrawal. 2. Dimension 2: Score 1. The patient tolerates and rhona with physical discomfort and is able to get the services that he needs. He is presenting with acute pancreatitis. 3. Dimension 3: Score 1+. The patient has a mental health diagnosis, however, is able to be stabilized and appears to function adequately in significant life areas. 4. Dimension 4: Score 1+. The patient is verbalizing that he is motivated to explore treatment strategies for change. 5. Dimension 5: Score 2+. The patient displays poor recognition and understanding of relapse and recidivism issues and displays a high vulnerability for further substance use or mental health problems. 6. Dimension 6: Score 2. The patient is engaged in structured meaningful activity and has a supportive living environment. ASSESSMENT SUMMARY: The patient appears to be a man in stage III dependence manifesting with pancreatitis secondary to alcohol use disorder, severe. He is meeting ASAM criteria for a level 2.1 intensive outpatient treatment. The patient is not meeting ASAM imminent danger criteria for either an outpatient or inpatient petition for involuntary commitment. The patient verbalizes that he wants to participate in treatment either residential or outpatient, but he prefers to utilize a private treatment facility rather than [facility]. He just did not know where else to go at the time. The patient has agreed to follow up with outpatient treatment at the [facility] and this agency will coordinate a referral for medically assisted sobriety with Dr. Weaver at [facility]. The patient was given continued care, referral information, and an appointment was set with [facility] on a standby basis pending discharge. The patient understands that if he is unable to maintain sobriety on an outpatient basis [facility] will coordinate a subsequent transfer to a residential facility. Dr. Stovall was consulted regarding the evaluation and is in agreement with the recommendation for outpatient continued care at [facility]. Marion Low was given the referral sheet for continued care services to deliver to the patient and will be following up with area residential treatment facilities to see if there is an available admission. Should any residential substance abuse facility be available, Maurilio Solares LAC will work with Marion Low to coordinate transfer and admission. HUSSEIN /[id number]
[2017-02-18] MEDS: Nicotine 21 MG/24 Hr Patch TRDERM SCH (09:36)
[2017-02-18] MEDS: Folic Acid 1 MG Tab PO SCH (09:36)
[2017-02-18] MEDS: FLUoxetine 20 MG Cap PO SCH (09:37)
[2017-02-18] MEDS: Topiramate 25 MG Tab PO SCH ×2 (09:37→20:22)
[2017-02-18] MEDS: Pantoprazole 40 MG Vial IVPUSH SCH (09:38)
[2017-02-18] MEDS: Metoprolol Tartrate 25 MG Tab PO SCH ×2 (09:38→20:23)
[2017-02-18] MEDS: chlordiazePOXIDE 25 MG Cap PO SCH ×5 (09:38→20:22)
[2017-02-18] MEDS: LORazepam 2 MG/ML MDV IVPUSH PRN ×2 (09:55→13:43)
[2017-02-18] MEDS ORDERED: Magnesium Sulfate/Water 2 GM in Premix Bag 1 BAG IV ONE (12:16)
[2017-02-18] MEDS ORDERED: Haloperidol Lactate 5 MG/ML SDV IVPUSH PRN (13:23)
--- NOTE | 2017-02-18 16:02 | PCM.PN ---
- General Info Functional Status: Reports: Tolerating Diet, Ambulating, Urinating - Review of Systems General: Reports: No Symptoms HEENT: Reports: No Symptoms Pulmonary: Reports: No Symptoms Cardiovascular: Reports: No Symptoms Gastrointestinal: Reports: No Symptoms Genitourinary: Reports: No Symptoms Musculoskeletal: Reports: No Symptoms Skin: Reports: No Symptoms Neurological: Reports: No Symptoms Psychiatric: Reports: Depression, Mood Lability, Anxiety - Patient Data Vitals - Most Recent: Last Vital Signs Temp 36.6 C 02/18/17 13:50 Pulse 73 02/18/17 13:50 Resp 20 02/18/17 13:50 BP 109/65 02/18/17 13:50 Pulse Ox 100 02/18/17 13:50 Weight - Most Recent: 117.934 kg I&O - Last 24 Hours: Intake & Output 02/18/17 02/18/17 02/18/17 06:59 14:59 22:59 Intake Total 1040 420 240 Output Total 975 600 Balance 65 -180 240 Lab Results Last 24 Hours: Laboratory Results - last 24 hr 02/18/17 02/18/17 Range/Units 05:04 05:04 WBC 8.29 (4.23-9.07) K/mm3 RBC 4.84 (4.63-6.08) M/mm3 Hgb 15.6 (13.7-17.5) gm/L Hct 47.5 (40.1-51.0) % MCV 98.1 H (79.0-92.2) fl MCH 32.2 (25.7-32.2) pg MCHC 32.8 (32.2-35.5) g/dl RDW Std Deviation 48.2 H (35.1-43.9) fL Plt Count 157 L (163-337) K/mm3 MPV 10.0 (9.4-12.3) fl Neut % (Auto) 59.5 (34.0-67.9) % Lymph % (Auto) 25.0 (21.8-53.1) % [place] % (Auto) 10.9 (5.3-12.2) % Eos % (Auto) 3.5 (0.8-7.0) Baso % (Auto) 0.5 (0.1-1.2) % Neut # (Auto) 4.94 (1.78-5.38) K/mm3 Lymph # (Auto) 2.07 (1.32-3.57) K/mm3 [place] # (Auto) 0.90 H (0.30-0.82) K/mm3 Eos # (Auto) 0.29 (0.04-0.54) K/mm3 Baso # (Auto) 0.04 (0.01-0.08) K/mm3 Sodium 139 (136-145) mEq/L Potassium 4.1 (3.5-5.1) mEq/L Chloride 104 (98-107) mEq/L Carbon Dioxide 28 (21-32) mEq/L Anion Gap 11.1 (5-15) BUN 13 (7-18) mg/dL Creatinine 0.7 (0.7-1.3) mg/dL Est Cr Clr Drug Dosing 161.70 mL/min Estimated GFR (MDRD) > 60 (>60) mL/min BUN/Creatinine Ratio 18.6 H (14-18) Glucose 95 (74-106) mg/dL Calcium 8.5 (8.5-10.1) mg/dL Magnesium 1.9 (1.8-2.4) mg/dl C-Reactive Protein < 0.2 (<1.0) mg/dL Med Orders - Current: Current Medications Al Hydroxide/Mg Hydroxide (Mag-Al Plus) 30 ml PO Q4H PRN PRN Reason: Heartburn Chlordiazepoxide HCl (Librium) 50 mg PO TID [facility] Last Admin: 02/18/17 13:43 Dose: 50 mg Fluoxetine HCl (Prozac) 20 mg PO DAILY [facility] Last Admin: 02/18/17 09:37 Dose: 20 mg Folic Acid (Folic Acid) 1 mg PO DAILY [facility] Last Admin: 02/18/17 09:36 Dose: 1 mg Haloperidol Lactate (Haldol) 1 mg IVPUSH Q8H PRN PRN Reason: restlessness Last Admin: 02/17/17 03:13 Dose: 1 mg Lorazepam (Ativan) 0 mg IVPUSH ASDIRECTED PRN; Protocol PRN Reason: Withdrawal Symptoms Last Admin: 02/18/17 09:55 Dose: 1 mg Lorazepam (Ativan) 3 mg IVPUSH Q6H PRN PRN Reason: Anxiety Last Admin: 02/18/17 13:43 Dose: 3 mg Metoprolol Tartrate (Lopressor) 25 mg PO Q12HR [facility] Last Admin: 02/18/17 09:38 Dose: 25 mg Metoprolol Tartrate (Lopressor) 5 mg IVPUSH Q6H PRN PRN Reason: heart rate Miscellaneous Information (Remove Patch) 0 ea TRDERM DAILY [facility] Last Admin: 02/18/17 09:37 Dose: 1 ea Nicotine (Habitrol) 21 mg TRDERM DAILY [facility] Last Admin: 02/18/17 09:36 Dose: 21 mg Pantoprazole Sodium (Protonix) 40 mg PO DAILY@0700 [facility] Quetiapine Fumarate (Seroquel) 100 mg PO BEDTIME [facility] Last Admin: 02/17/17 20:05 Dose: 100 mg Sodium Chloride (Saline Flush) 10 ml FLUSH ASDIRECTED PRN PRN Reason: Keep Vein Open Last Admin: 02/16/17 20:38 Dose: 10 ml Thiamine HCl (Vitamin B-1) 100 mg PO BEDTIME [facility] Last Admin: 02/17/17 20:05 Dose: 100 mg Topiramate (Topamax) 25 mg PO BID [facility] Last Admin: 02/18/17 09:37 Dose: 25 mg Discontinued Medications Chlordiazepoxide HCl (Librium) 25 mg PO QID [facility] Last Admin: 02/18/17 13:45 Dose: Not Given Folic Acid (Folic Acid) 1 mg PO ONETIME ONE Stop: 02/16/17 13:25 Last Admin: 02/16/17 15:01 Dose: 1 mg Haloperidol Lactate (Haldol) 1 mg IVPUSH Q8H PRN PRN Reason: Restlessness Sodium Chloride (Normal Saline) 1,000 mls @ 999 mls/hr IV ONETIME ONE Stop: 02/16/17 14:24 Last Admin: 02/16/17 13:47 Dose: 999 mls/hr Magnesium Sulfate 2 gm/ Premix 50 mls @ 25 mls/hr IV ONETIME ONE Stop: 02/16/17 16:33 Last Admin: 02/16/17 14:50 Dose: 25 mls/hr Potassium Chloride/Sodium Chloride (Normal Saline With 20 Meq Kcl) 1,000 mls @ 125 mls/hr IV ASDIRECTED [facility] Last Admin: 02/17/17 04:39 Dose: 125 mls/hr Magnesium Sulfate 2 gm/ Premix 50 mls @ 25 mls/hr IV ONETIME ONE Stop: 02/18/17 14:15 Last Admin: 02/18/17 13:43 Dose: 25 mls/hr Lorazepam (Ativan) 3 mg IVPUSH ONETIME ONE Stop: 02/16/17 16:20 Last Admin: 02/16/17 16:24 Dose: 3 mg Lorazepam (Ativan) 3 mg IVPUSH ONETIME ONE Stop: 02/17/17 15:34 Last Admin: 02/17/17 16:47 Dose: 3 mg Nicotine (Habitrol) 14 mg TRDERM DAILY [facility] Last Admin: 02/17/17 13:42 Dose: Not Given Ondansetron HCl (Zofran) 4 mg IVPUSH ONETIME ONE Stop: 02/16/17 13:23 Last Admin: 02/16/17 13:48 Dose: 4 mg Pantoprazole Sodium (Protonix Iv) 40 mg IVPUSH Q12H [facility] Last Admin: 02/18/17 09:38 Dose: 40 mg Quetiapine Fumarate (Seroquel) 25 mg PO BEDTIME [facility] Last Admin: 02/16/17 20:37 Dose: 25 mg Thiamine HCl (Vitamin B-1) 100 mg PO ONETIME ONE Stop: 02/16/17 13:25 Last Admin: 02/16/17 15:01 Dose: 100 mg - Exam Quality Assessment: DVT Prophylaxis General: Alert, Oriented, Cooperative HEENT: Pupils Equal, Pupils Reactive, EOMI Neck: Supple, Trachea Midline, No JVD Lungs: Normal Respiratory Effort Cardiovascular: Regular Rate, Regular Rhythm GI/Abdominal Exam: Normal Bowel Sounds, Soft, Non-Tender, No Organomegaly, No Distention (Male) Exam: Deferred Back Exam: Normal Inspection Extremities: Normal Inspection, Normal Range of Motion, Non-Tender, No Pedal Edema Skin: Warm Neurological: No New Focal Deficit Psy/Mental Status: Alert, Anxious, Depressed - Problem List & Annotations (1) Bipolar affective disorder SNOMED Code(s): 30672421 Code(s): F31.9 - BIPOLAR DISORDER, UNSPECIFIED Status: Acute Current Visit: Yes (2) H/O gastric bypass SNOMED Code(s): 910289859 Code(s): Z98.890 - OTHER SPECIFIED POSTPROCEDURAL STATES Status: Acute Current Visit: Yes (3) Anxiety and depression SNOMED Code(s): 083767892 Code(s): F41.8 - OTHER SPECIFIED ANXIETY DISORDERS Status: Acute Current Visit: Yes (4) Tobacco dependence due to cigarettes SNOMED Code(s): 62857764507098150 Code(s): F17.210 - NICOTINE DEPENDENCE, CIGARETTES, UNCOMPLICATED Status: Acute Current Visit: Yes (5) Alcohol abuse SNOMED Code(s): 07381035 Code(s): F10.10 - ALCOHOL ABUSE, UNCOMPLICATED Status: Acute Current Visit: Yes (6) Alcohol withdrawal syndrome SNOMED Code(s): 500539356 Code(s): F10.239 - ALCOHOL DEPENDENCE WITH WITHDRAWAL, UNSPECIFIED Status: Acute Current Visit: Yes Qualifiers: Complication of substance-induced condition: with unspecified complication Qualified Code(s): F10.239 - Alcohol dependence with withdrawal, unspecified - Problem List Review Problem List Initiated/Reviewed/Updated: Yes - My Orders Last 24 Hours: My Active Orders 02/17/17 21:00 Thiamine [Vitamin B-1] 100 mg PO BEDTIME 02/17/17 Dinner Regular Diet [DIET] 02/18/17 09:00 Remove Patch 0 ea TRDERM DAILY 02/18/17 13:21 chlordiazePOXIDE [Librium] 50 mg PO TID 02/18/17 13:22 LORazepam [Ativan] 3 mg IVPUSH Q6H PRN 02/18/17 15:09 Communication Order [RC] ASDIRECTED 02/19/17 05:00 BASIC METABOLIC PANEL,BMP [CHEM] DAILY CBC WITH AUTO DIFF [HEME] DAILY CRP [C-REACTIVE PROTEIN] [CHEM] DAILY MAGNESIUM [CHEM] DAILY 02/19/17 07:00 Pantoprazole [ProTONIX] 40 mg PO DAILY@0700 02/20/17 05:00 BASIC METABOLIC PANEL,BMP [CHEM] DAILY CBC WITH AUTO DIFF [HEME] DAILY CRP [C-REACTIVE PROTEIN] [CHEM] DAILY MAGNESIUM [CHEM] DAILY - Plan Plan:: Impression: ETOH dependenc History of Bipolar Affective Disorder Tobacco dependence-->tobacco cravings. Hypomagnesemia Plan: CIWA Protocol Substance abuse consult--->)P treatment, TBA Psych consult__>rec have been noted. IVF stopped Regular diet Nicotrol Inhaler Habitrol patch Scheduled Librium Ativan prn SW/PT/OT DVT/GI prophylaxis
[2017-02-18] MEDS: Thiamine 100 MG Tab PO SCH (20:22)
[2017-02-18] MEDS: QUEtiapine 100 MG Tab PO SCH (20:23)
[2017-02-18] MEDS: Sodium Chloride 0.9% 10 ML Syringe FLUSH PRN (20:26)
[2017-02-19] MEDS ORDERED: Pantoprazole 40 MG Tab.CR PO SCH (07:00)
[2017-02-19] MEDS: Folic Acid 1 MG Tab PO SCH (08:31)
[2017-02-19] MEDS: FLUoxetine 20 MG Cap PO SCH (08:32)
[2017-02-19] MEDS: Topiramate 25 MG Tab PO SCH (08:32)
[2017-02-19] MEDS: chlordiazePOXIDE 25 MG Cap PO SCH ×2 (08:32→15:02)
[2017-02-19] MEDS: Nicotine 21 MG/24 Hr Patch TRDERM SCH (08:33)
[2017-02-19] MEDS: Metoprolol Tartrate 25 MG Tab PO SCH (09:24)
[2017-02-19] MEDS: LORazepam 2 MG/ML MDV IVPUSH PRN (13:22)
--- NOTE | 2017-02-19 14:23 | PCM.DCSUM1 ---
Discharge Summary - Hospital Course HPI Initial Comments: 36 year old male with ETOH dependence in abuse presented after self imposed abstinence. He drinks heavily on a daily basis, presented with the apart desire to stop with assistance. He has a psychiatric history of Bipolar Affective Disorder. The patient was seen in consultation to begin voluntary outpatient treatment. by Dr Paredes and Maurilio Solares respectively. He is to see Dr Palma 02/20/17 for Vivitrol injection. And the following week be see at the substance abuse clinic. Primary Dx ETOH withdrawal Tobacco dependence Bipolar Affective Disorder Condition stable Prognosis Good Medication Nicotrol Inhaler Habitrol transdermal 21 mg daily Topamax 25 mg BID Seroquel 100 mg at bedtime Folic Acid 1 mg daily Thiamine 100 mg daily Prozac 20 mg daily *Schedule as above Vivitrol Inj Follow up Psych TBA FP Dr Palma Sub Abuse Maurilio Solares Activity As tolerated Diet Regular Instructions No ETOH Stop Tobacco - Discharge Data Discharge Date: 02/19/17 Discharge Disposition: Home, Self-Care 01 Condition: Good - Discharge Diagnosis/Problem(s) (1) Bipolar affective disorder SNOMED Code(s): 86911549 ICD Code: F31.9 - BIPOLAR DISORDER, UNSPECIFIED Status: Acute Current Visit: Yes (2) H/O gastric bypass SNOMED Code(s): 351110845 ICD Code: Z98.890 - OTHER SPECIFIED POSTPROCEDURAL STATES Status: Acute Current Visit: Yes (3) Anxiety and depression SNOMED Code(s): 962423061 ICD Code: F41.8 - OTHER SPECIFIED ANXIETY DISORDERS Status: Acute Current Visit: Yes (4) Tobacco dependence due to cigarettes SNOMED Code(s): 74162327158221290 ICD Code: F17.210 - NICOTINE DEPENDENCE, CIGARETTES, UNCOMPLICATED Status: Acute Current Visit: Yes (5) Alcohol abuse SNOMED Code(s): 88369569 ICD Code: F10.10 - ALCOHOL ABUSE, UNCOMPLICATED Status: Acute Current Visit: Yes (6) Alcohol withdrawal syndrome SNOMED Code(s): 363787398 ICD Code: F10.239 - ALCOHOL DEPENDENCE WITH WITHDRAWAL, UNSPECIFIED Status : Acute Current Visit: Yes Qualifiers: Complication of substance-induced condition: with unspecified complication Qualified Code(s): F10.239 - Alcohol dependence with withdrawal, unspecified - Patient Summary/Data Consults: Consultations 02/16/17 20:09 Consult to [employer] [CONS] Routine 02/16/17 20:12 Consult to Physician [CONS] Routine 02/16/17 20:13 Consult for Substance Abuse [CONS] Routine 02/17/17 08:17 Consult to Spiritual Care [CONS] Routine - Patient Instructions Diet: Regular Diet as Tolerated Activity: As Tolerated Driving: May Drive Today Showering/Bathing: May Shower Notify Provider of: Nausea and/or Vomiting - Discharge Plan Prescriptions/Med Rec: FLUoxetine [PROzac] 20 mg PO DAILY #30 cap Folic Acid 1 mg PO DAILY #30 tablet Nicotine [Habitrol] 21 mg TRDERM DAILY #30 patch QUEtiapine [SEROquel] 100 mg PO BEDTIME #30 tablet Thiamine [Vitamin B-1] 100 mg PO BEDTIME #30 tablet Topiramate [Topamax] 25 mg PO BID #60 tablet Home Medications: Home Meds FLUoxetine [PROzac] 20 mg PO DAILY #30 cap 02/19/17 [Rx] Folic Acid 1 mg PO DAILY #30 tablet 02/19/17 [Rx] Nicotine [Habitrol] 21 mg TRDERM DAILY #30 patch 02/19/17 [Rx] QUEtiapine [SEROquel] 100 mg PO BEDTIME #30 tablet 02/19/17 [Rx] Thiamine [Vitamin B-1] 100 mg PO BEDTIME #30 tablet 02/19/17 [Rx] Topiramate [Topamax] 25 mg PO BID #60 tablet 02/19/17 [Rx] Patient Handouts: Smoking Cessation, Tips for Success, Hcwd-nh-Oard, Addiction and the Family, Alcohol Use Disorder, Chemical Dependency, Alcohol Abuse and Nutrition, Stress and Stress Management, Alcohol Withdrawal, Bers-he-Mbke Referrals: Jonathon Paredes MD [Physician] - (Call [phone] to the [facility] a follow-up appointment with outpatient psychiatrist. Location is [address] [place] [address].) PCP,None [Primary Care Provider] - - Discharge Summary/Plan Comment DC Time >30 min.: No - General Info Date of Service: 02/16/17 Functional Status: Reports: Tolerating Diet, Ambulating, Urinating - Review of Systems General: Reports: No Symptoms HEENT: Reports: No Symptoms Pulmonary: Reports: No Symptoms Cardiovascular: Reports: No Symptoms Gastrointestinal: Reports: No Symptoms Genitourinary: Reports: No Symptoms Musculoskeletal: Reports: No Symptoms Skin: Reports: No Symptoms Neurological: Reports: No Symptoms Psychiatric: Reports: No Symptoms - Patient Data Vitals - Most Recent: Last Vital Signs Temp 36.4 C 02/19/17 12:00 Pulse 69 02/19/17 12:00 Resp 14 02/19/17 12:00 BP 97/69 02/19/17 12:00 Pulse Ox 98 02/19/17 12:00 Weight - Most Recent: 117.934 kg I&O - Last 24 hours: Intake & Output 02/18/17 02/19/17 02/19/17 22:59 06:59 14:59 Intake Total 770 830 120 Output Total 500 1050 Balance 270 -220 120 Lab Results - Last 24 hrs: Laboratory Results - last 24 hr 02/19/17 02/19/17 Range/Units 05:12 05:12 WBC 9.10 H (4.23-9.07) K/mm3 RBC 4.84 (4.63-6.08) M/mm3 Hgb 15.7 (13.7-17.5) gm/L Hct 47.7 (40.1-51.0) % MCV 98.6 H (79.0-92.2) fl MCH 32.4 H (25.7-32.2) pg MCHC 32.9 (32.2-35.5) g/dl RDW Std Deviation 48.9 H (35.1-43.9) fL Plt Count 152 L (163-337) K/mm3 MPV 10.3 (9.4-12.3) fl Neut % (Auto) 51.7 (34.0-67.9) % Lymph % (Auto) 30.7 (21.8-53.1) % [place] % (Auto) 12.6 H (5.3-12.2) % Eos % (Auto) 4.0 (0.8-7.0) Baso % (Auto) 0.5 (0.1-1.2) % Neut # (Auto) 4.70 (1.78-5.38) K/mm3 Lymph # (Auto) 2.79 (1.32-3.57) K/mm3 [place] # (Auto) 1.15 H (0.30-0.82) K/mm3 Eos # (Auto) 0.36 (0.04-0.54) K/mm3 Baso # (Auto) 0.05 (0.01-0.08) K/mm3 Sodium 140 (136-145) mEq/L Potassium 4.3 (3.5-5.1) mEq/L Chloride 106 (98-107) mEq/L Carbon Dioxide 26 (21-32) mEq/L Anion Gap 12.3 (5-15) BUN 19 H (7-18) mg/dL Creatinine 0.8 (0.7-1.3) mg/dL Est Cr Clr Drug Dosing 141.49 mL/min Estimated GFR (MDRD) > 60 (>60) mL/min BUN/Creatinine Ratio 23.8 H (14-18) Glucose 92 (74-106) mg/dL Calcium 8.6 (8.5-10.1) mg/dL Magnesium 2.2 (1.8-2.4) mg/dl C-Reactive Protein < 0.2 (<1.0) mg/dL Med Orders - Current: Current Medications Al Hydroxide/Mg Hydroxide (Mag-Al Plus) 30 ml PO Q4H PRN PRN Reason: Heartburn Chlordiazepoxide HCl (Librium) 50 mg PO TID [facility] Last Admin: 02/19/17 08:32 Dose: 50 mg Fluoxetine HCl (Prozac) 20 mg PO DAILY [facility] Last Admin: 02/19/17 08:32 Dose: 20 mg Folic Acid (Folic Acid) 1 mg PO DAILY [facility] Last Admin: 02/19/17 08:31 Dose: 1 mg Haloperidol Lactate (Haldol) 1 mg IVPUSH Q8H PRN PRN Reason: restlessness Last Admin: 02/17/17 03:13 Dose: 1 mg Lorazepam (Ativan) 0 mg IVPUSH ASDIRECTED PRN; Protocol PRN Reason: Withdrawal Symptoms Last Admin: 02/18/17 09:55 Dose: 1 mg Lorazepam (Ativan) 3 mg IVPUSH Q6H PRN PRN Reason: Anxiety Last Admin: 02/19/17 13:22 Dose: 3 mg Metoprolol Tartrate (Lopressor) 25 mg PO Q12HR [facility] Last Admin: 02/19/17 09:24 Dose: Not Given Metoprolol Tartrate (Lopressor) 5 mg IVPUSH Q6H PRN PRN Reason: heart rate Miscellaneous Information (Remove Patch) 0 ea TRDERM DAILY [facility] Last Admin: 02/19/17 09:00 Dose: 1 ea Nicotine (Habitrol) 21 mg TRDERM DAILY [facility] Last Admin: 02/19/17 08:33 Dose: 21 mg Pantoprazole Sodium (Protonix) 40 mg PO DAILY@0700 [facility] Last Admin: 02/19/17 06:50 Dose: 40 mg Quetiapine Fumarate (Seroquel) 100 mg PO BEDTIME [facility] Last Admin: 02/18/17 20:23 Dose: 100 mg Sodium Chloride (Saline Flush) 10 ml FLUSH ASDIRECTED PRN PRN Reason: Keep Vein Open Last Admin: 02/18/17 20:26 Dose: 10 ml Thiamine HCl (Vitamin B-1) 100 mg PO BEDTIME [facility] Last Admin: 02/18/17 20:22 Dose: 100 mg Topiramate (Topamax) 25 mg PO BID [facility] Last Admin: 02/19/17 08:32 Dose: 25 mg Discontinued Medications Chlordiazepoxide HCl (Librium) 25 mg PO QID [facility] Last Admin: 02/18/17 13:45 Dose: Not Given Folic Acid (Folic Acid) 1 mg PO ONETIME ONE Stop: 02/16/17 13:25 Last Admin: 02/16/17 15:01 Dose: 1 mg Haloperidol Lactate (Haldol) 1 mg IVPUSH Q8H PRN PRN Reason: Restlessness Sodium Chloride (Normal Saline) 1,000 mls @ 999 mls/hr IV ONETIME ONE Stop: 02/16/17 14:24 Last Admin: 02/16/17 13:47 Dose: 999 mls/hr Magnesium Sulfate 2 gm/ Premix 50 mls @ 25 mls/hr IV ONETIME ONE Stop: 02/16/17 16:33 Last Admin: 02/16/17 14:50 Dose: 25 mls/hr Potassium Chloride/Sodium Chloride (Normal Saline With 20 Meq Kcl) 1,000 mls @ 125 mls/hr IV ASDIRECTED [facility] Last Admin: 02/17/17 04:39 Dose: 125 mls/hr Magnesium Sulfate 2 gm/ Premix 50 mls @ 25 mls/hr IV ONETIME ONE Stop: 02/18/17 14:15 Last Admin: 02/18/17 13:43 Dose: 25 mls/hr Lorazepam (Ativan) 3 mg IVPUSH ONETIME ONE Stop: 02/16/17 16:20 Last Admin: 02/16/17 16:24 Dose: 3 mg Lorazepam (Ativan) 3 mg IVPUSH ONETIME ONE Stop: 02/17/17 15:34 Last Admin: 02/17/17 16:47 Dose: 3 mg Nicotine (Habitrol) 14 mg TRDERM DAILY [facility] Last Admin: 02/17/17 13:42 Dose: Not Given Ondansetron HCl (Zofran) 4 mg IVPUSH ONETIME ONE Stop: 02/16/17 13:23 Last Admin: 02/16/17 13:48 Dose: 4 mg Pantoprazole Sodium (Protonix Iv) 40 mg IVPUSH Q12H [facility] Last Admin: 02/18/17 09:38 Dose: 40 mg Quetiapine Fumarate (Seroquel) 25 mg PO BEDTIME [facility] Last Admin: 02/16/17 20:37 Dose: 25 mg Thiamine HCl (Vitamin B-1) 100 mg PO ONETIME ONE Stop: 02/16/17 13:25 Last Admin: 02/16/17 15:01 Dose: 100 mg - Exam Quality Assessment: Reports: DVT Prophylaxis General: Reports: Alert, Oriented, Cooperative, No Acute Distress HEENT: Reports: Pupils Equal, Pupils Reactive, EOMI Neck: Reports: Supple, Trachea Midline, No JVD Lungs: Reports: Clear to Auscultation, Normal Respiratory Effort Cardiovascular: Reports: Regular Rate, Regular Rhythm GI/Abdominal Exam: Normal Bowel Sounds, Soft, Non-Tender, No Organomegaly, No Distention (Male) Exam: Deferred Rectal (Males) Exam: Deferred Back Exam: Reports: Normal Inspection Extremities: Normal Inspection, Normal Range of Motion, Non-Tender, No Pedal Edema, Normal Capillary Refill Skin: Reports: Warm, Dry, Intact Neurological: Reports: No New Focal Deficit, Normal Gait, Normal Speech Psy/Mental Status: Reports: Alert, Normal Affect, Normal Mood *Q Meaningful Use (DIS) - VTE *Q VTE Criteria *Q: - Stroke *Q Stroke Criteria *Q: - AMI *Q AMI Criteria *Q:
== END 2017-02-19 15:17 | disposition home or self-care (01) | DRG 775 ==
LOC: JD.ED 12:37 → JD.ICU 17:13
PROVIDERS: ADMIT Internal Medicine Cardiovascular Disease; ATTEND Internal Medicine Cardiovascular Disease
DX: F10.239 Alcohol dependence with withdrawal, unspecified (principal); F32.9 Major depressive disorder, single episode, unspecified; F41.9 Anxiety disorder, unspecified; F17.210 Nicotine dependence, cigarettes, uncomplicated; F31.60 Bipolar disorder, current episode mixed, unspecified
CPT/HCPCS: 36415; 80048; 80053; 80306; 81001; 83690; 83735; 84443; 85025; 85610; 86140; 93005; 93010; 96361; 96365; 96366; 96375; 99284; 99285-25; A9270-GY; C9113; G0480; J1630; J2060; J2405; J3475; J3480; J7040; J7050